=== PATIENT | female | born 1995 | race Two or more races ===

== ENCOUNTER 2018-03-26 19:45 | Emergency (ER) | payer OTHER, MEDICAID ==
[~2018-03-26] VITALS: Ht 157.5 cm; Wt 59.0 kg
--- NOTE | 2018-03-26 19:51 | NUR ---
TO ER BED 14 C/C OF SI PER PARAMEDICS. AA/OX4. APPEARS DEPRESSED. PT DENIES TAKING ANY PILLS. NO TRUAMA NOTED. MOVES ALL EXTREMITIES WELL. NAD. VSS. STABLE CONDITION. WILL CONTINUE TO MONITOR.
[2018-03-26] MEDS ORDERED: IV NS 0.9% 1,000 ML IV ONE (20:00)
--- NOTE | 2018-03-26 20:07 | NUR ---
ROSALINO MERLOS MOTHER [phone]
--- NOTE | 2018-03-26 20:08 | NUR ---
ADOLFO PT'S SISTER [phone]
[2018-03-26 20:18] LABS: BASOPHILS # (AUTO) 0.1 /CMM (0.0-0.2); BASOPHILS % (AUTO) 0.9 % (0.0-2.0); EOSINOPHILS % (AUTO) 1.1 % (0.0-6.0); HEMATOCRIT 38 % (33-45); HEMOGLOBIN 12.8 g/dL (11.5-14.8); LYMPHOCYTES % (AUTO) 36.7 % (20.0-44.0); MEAN CORPUSCULAR HGB CONC 34 g/dl (31.0-36.0); MEAN CORPUSCULAR VOLUME 94 fL (82-100); MONOCYTES # (AUTO) 0.9 /CMM (0.1-1.30); MONOCYTES % (AUTO) 11.5 % (2.0-12.0); NEUTROPHILS % (AUTO) 49.8 % (43.0-81.0); PLATELET COUNT (AUTO) 381 /CMM (150-450); RED BLOOD CELL COUNT(AUTO) 3.99 MIL/uL (4.0-5.2); WHITE BLOOD COUNT (AUTO) 8.1 K/uL (4.3-11.0)
[2018-03-26 20:49] LABS: APPEARANCE,URINE Clear (CLEAR); BILIRUBIN,URINE Negative (NEGATIVE); BLOOD, URINE Trace-intact Ery/uL (NEGATIVE); COLOR,URINE Yellow (YELLOW); KETONES,URINE Negative (NEGATIVE); LEUKOCYTE ESTERASE ,URINE Negative (NEGATIVE); NITRITE, URINE Negative (NEGATIVE); PROTEIN,URINE Negative (NEGATIVE); UGLUCOSE Negative (NEGATIVE); UROBILINOGEN,URINE 0.2 EU/dL (0.2)
[2018-03-26 21:04] LABS: RBC,URINE 0-2 /HPF (0-2); WBC,URINE NONE SEEN /HPF (0-3)
[2018-03-26 21:05] LABS: BACTERIA,URINE None seen /HPF (None Seen); SQUAMOUS EPITHELIAL CELL,UR Few /HPF (None Seen)
--- NOTE | 2018-03-26 21:13 | NUR ---
Patient is resting comfortably in bed with eyes closed. Easily aroused. VSS. NAD. STABLE CONDITION. WILL CONTINUE TO MONITOR.
[2018-03-26 21:37] LABS: CALCIUM, SERUM 9.2 mg/dL (8.5-10.1); CARBON DIOXIDE 23 mmol/L (21-32); CHLORIDE 103 mmol/L (98-107); CREATININE 0.7 mg/dL (0.6-1.3); GLUCOSE 89 mg/dL (74-106); POTASSIUM 3.4 mmol/L (3.5-5.1); SODIUM SERUM 140 mmol/L (136-145); UREA NITROGEN, BLOOD 6 mg/dL (7-18)
[2018-03-26 21:42] LABS: ALANINE AMINOTRANSFERASE 18 U/L (12-78); ALBUMIN 3.9 g/dL (3.4-5.0); ALCOHOL, BLOOD < 3 mg/dL (0-0); ALKALINE PHOSPHATASE 68 U/L (46-116); ASPARTATE AMINOTRANSFERASE 18 U/L (15-37); BILIRUBIN,DIRECT 0.1 mg/dL (0.0-0.2); BILIRUBIN,TOTAL 0.5 mg/dL (0.2-1.0); SALICYLATE 0.4 mg/dL (2.8-20.0); TOTAL PROTEIN, SERUM 7.8 g/dL (6.4-8.2)
[2018-03-26 21:43] LABS: ACETAMINOPHEN < 10 ug/ml (10-30)
--- NOTE | 2018-03-26 23:50 | NUR ---
SPOKE WITH POISON CONTROL PHARMACIST MOLLY
--- NOTE | 2018-03-27 00:04 | NUR ---
CONTINUES TO REST COMFORTABLY. EASILY AROUSABLE. WHEN AROUSED AA/OX4. VSS. NAD. WILL CONTINUE TO MONITOR.
--- NOTE | 2018-03-27 04:07 | NUR ---
PET TEAM DIAMOND CUTTER ART AT BEDSIDE
--- NOTE | 2018-03-27 05:17 | NUR ---
SPOKE WITH PSYCH CRYSTAL FROM [facility] Addendum: 03/27/18 at 8523 by [facility]ITA CONTACT NUMBER
[2018-03-27] MEDS ORDERED: OLANZAPINE 5 MG TABLET PO ONE (05:30)
--- NOTE | 2018-03-27 06:30 | NUR ---
CALLED [facility] FOR SITTER "NO SITTER AVAILABLE AT THIS TIME"
--- NOTE | 2018-03-27 06:46 | NUR ---
FAXED [phone] TO [facility]
--- NOTE | 2018-03-27 07:30 | NUR ---
ENDORSED TO ONCOMING SHIFT SHELLEY SNOW. NAD. STABLE CONDITION.
--- NOTE | 2018-03-27 07:32 | NUR ---
ASSUME PT CARE. RESTING IN BED. STABLE VITALS. WILL CONTINUE TO MONITOR.
--- NOTE | 2018-03-27 08:15 | NUR ---
PT PLACED ON 2 PT RESTRAINT PER ER MD ORDER, STABLE VITALS
--- NOTE | 2018-03-27 09:37 | NUR ---
JACKIE CLIFTON, FATHER. [phone]
--- NOTE | 2018-03-27 10:15 | NUR ---
RECHECKED, SKIN INTACT, GOOD CIRCULATION, STABLE VITALS, SITTER AT BEDSIDE. 2 PT RESTRAINT REMOVED
--- NOTE | 2018-03-27 10:20 | NUR ---
PT NOTED CALM AND COOPERATIVE, NOT THREATENING ANY PHYSICAL HARM TO SELF, OFFERED FOOD, SITTER AT BEDSIDE, WILL CONTINUE TO MONITOR
--- NOTE | 2018-03-27 11:36 | NUR ---
RECEIVED CALL FROM LEOBARDO RODRIGUEZ MCGUFFEY, PT GOING TO [facility], ACCEPTING , DR GUZMAN, [facility] KIE=[phone]
--- NOTE | 2018-03-27 11:52 | NUR ---
REPORT GIVEN TO [facility] OF [facility] - [phone] ([address] [facility] [id number]), ACCEPTING MD: DR GUZMAN, ETA: [phone]
--- NOTE | 2018-03-27 12:53 | NUR ---
IV removed. Catheter intact and site benign. Pressure and 4x4 applied to site. No bleeding noted. PT PICKED UP BY [facility], BROUGHT TO [facility], PT IN STABLE CONDITION.
[2018-03-27 12:56] VITALS: BP 103/66
== END 2018-03-27 12:56 ==
LOC: ER 19:48
DX: R45.851 Suicidal ideations (principal); F20.9 Schizophrenia, unspecified; F32.9 Major depressive disorder, single episode, unspecified; F43.10 Post-traumatic stress disorder, unspecified; F15.10 Other stimulant abuse, uncomplicated
CPT/HCPCS: 36415; 80048-TC; 80076-TC; 80305; 81000-TC; 85025-TC; A4606; G0480; J7030; Z7610